=== PATIENT | male | born 1965 | race Caucasian/White ===

== ENCOUNTER 2019-01-23 21:51 | Emergency (ER) | payer MEDICAID ==
[~2019-01-23] VITALS: Ht 175.3 cm; Wt 58.0 kg
[~2019-01-23 21:51] MED LIST: ACET-2615 PO; AMOX500C2 PO; IBUP-1984 PO
[2019-01-23 22:01] VITALS: BP 150/95
[2019-01-24] MEDS ORDERED: AMOX500C2 PO (00:21)
[2019-01-24] MEDS ORDERED: IBUP-1984 PO (00:21)
== END 2019-01-24 01:00 | disposition home or self-care (01) ==
LOC: ER 21:51
DX: K08.89 Other specified disorders of teeth and supporting structures (principal); H92.03 Otalgia, bilateral; Z88.5 Allergy status to narcotic agent; Z79.899 Other long term (current) drug therapy
CPT/HCPCS: 99283